=== PATIENT | female | born 1980 | race Caucasian/White ===

== ENCOUNTER → 2019-03-10 | Outpatient (CLI) | payer MEDICAID ==
--- NOTE | 2019-03-10 11:39 | REPMRS ---
Patient History The patient states she had a clinical breast exam in 2018. Family history of endometrial cancer at age 36 in mother, breast cancer at age 38 in maternal aunt, liver cancer in maternal grandmother. Digital Mammo Diagnostic Bilateral: March 10, 2019 - Exam #: [id number] Bilateral CC and MLO view(s) were taken. Technologist: Genie Arreola, Technologist No prior studies available for comparison. FINDINGS: The breast tissue is almost entirely fat. There is no evidence of dominant mass, architectural distortion, or grouped microcalcification typical of malignancy. 3-D tomosynthesis shows no additional findings. Assessment: BI-RADS/ACR category 1 mammogram. Negative Mammogram. Recommendation Routine screening mammogram of both breasts in 1 year (for women over age 40). This patient's Lifetime Breast Cancer RIsk is estimated at 14.2 %. This mammogram was interpreted with the aid of an FDA-approved computer-aided dectection system. Electronically Signed By: Rafael Mata MD 03/10/19 [id number]
== END ==
LOC: M RAD 10:49
DX: N60.19 Diffuse cystic mastopathy of unspecified breast (principal); Z80.3 Family history of malignant neoplasm of breast; Z80.49 Family history of malignant neoplasm of other genital organs
CPT/HCPCS: 77066; G0279

== ENCOUNTER 2020-07-11 05:28 | Emergency (ER) | payer MEDICAID, OTHER ==
[~2020-07-11] VITALS: Ht 170.2 cm; Wt 122.7 kg
--- OUTSIDE RECORDS SUMMARY | 2020-07-11 05:33 | CCD | Continuity of Care Document ---
Author Author Radha DAMON Organization Unknown Address [address] [place] [address] [place] [address] Phone [phone] Care Team Providers Care Director Of Retail Operations Name Role Phone PCP Out Of Area AUTM Unavailable [place] [employer] [facility] [phone] Problems Description No Information Available Social History Type Date Description Comments Sex Unknown ETOH Use Rarely consumes alcohol Tobacco Use Start: Unknown Patient has never smoked Smoking Status Reviewed: 06/01/20 Patient has never smoked Allergies, Adverse Reactions, Alerts Active Allergies Reaction Severity Comments Date Sulfa 05/01/2020 Keflex 05/01/2020 Ibuprofen 05/01/2020 Medications Active Medications SIG Qnty Indications Ordering Provide r Date Ondansetron 4mg Tablets Dispers 1 tab under tongue three times a day as needed 15tabs R11.2 Tyrel Fontenot JR., M.D. 06/01/2020 Zoloft 100mg Tablets 1 by mouth every day Unknown Levothyroxine Sodium 150mcg Capsules Unknown Shira Allergy 60mg Tablets 1 tab by mouth twice a day as needed for allergy symptoms Unknown Immunizations Description No Information Available Vital Signs Date Vital Result Comment 06/01/2020 9:20am BP Systolic 124 mmHg BP Diastolic 86 mmHg Heart Rate 72 /min Respiratory Rate 14 /min O2 % BldC Oximetry 97 % Body Temperature 96.9 F Weight 274.00 lb Height 67 inches 5'7" BMI (Body Mass Index) 42.9 kg/m2 Pain Level 5 05/01/2020 3:58pm BP Systolic 125 mmHg BP Diastolic 71 mmHg Heart Rate 75 /min Respiratory Rate 16 /min O2 % BldC Oximetry 97 % Body Temperature 98.1 F Weight 268.00 lb Height 67 inches 5'7" BMI (Body Mass Index) 42.0 kg/m2 Pain Level 1 Results Description No Information Available Procedures Description No Information Available Medical Devices Description No Information Available Encounters Type Date Location Provider Dx Diagnosis Office Visit 06/01/2020 8:40a Main Office LISSA Justice R11.2 Nausea with vomiting, unspecified Z20.828 Contact w and exposure to ot h viral communicable diseases Office Visit 05/01/2020 4:05p Main Office Miryam Smith NP J00 Acute nasopharyngitis [common cold] Z20.828 Contact w and exposure to ot h viral communicable diseases Assessments Date Code Description Provider 06/01/2020 R11.2 Nausea with vomiting, unspecifie d LISSA Justice 06/01/2020 Z20.828 Contact with and (thapa spected) exposure to other viral communicable diseases LISSA Justice 05/01/2020 J00 Acute nasopharyngitis [common co ld] Miryam Smith NP 05/01/2020 Z20.828 Contact with and (thapa spected) exposure to other viral communicable diseases Miryam Smith NP Plan of Treatment 06/01/2020 - LISSA Justice* R11.2 Nausea with vomiting, unspecified* New Medication:* Ondansetron 4 mg - 1 tab under tongue three times a day as needed * Z20.828 Contact with and (suspected) exposure to other viral communicable diseases* Comments:* POC rapid COVID neg today Functional Status Description No Information Available Mental Status Description No Information Available Referrals Description No Information Available
--- OUTSIDE RECORDS SUMMARY | 2020-07-11 05:34 | CCD | Continuity of Care Document ---
Author Author Radha DAMON Organization Unknown Address [address] [place] [address] [place] [address] Phone [phone] Care Team Providers Care Remote Pilot Operator Name Role Phone PCP Out Of Area AUT[facility] Unavailable [place] [employer] [facility] [phone] Problems Description No Information Available Social History [...]
--- OUTSIDE RECORDS SUMMARY | 2020-07-11 05:34 | CCD | Continuity of Care Document ---
Author Author Radha PALOMINO LATHE SETUP OPERATOR Organization Unknown Address [address] [place] [address] [place] [address] Phone [phone] Care Team Providers Care Conservation Science Officer Name Role Phone PCP Out Of Area [facility] Unavailable [place] [employer] [facility] [phone] Problems Description No Information Available Social History Type Date Description Comments Sex Unknown ETOH Use Rarely consumes alcohol Tobacco Use Start: Unknown Patient has never smoked Smoking Status Reviewed: 05/01/20 Patient has never smoked Allergies, Adverse Reactions, Alerts Active Allergies Reaction Severity Comments Date Sulfa 05/01/2020 Keflex 05/01/2020 Ibuprofen 05/01/2020 Medications Active Medications SIG Qnty Indications Ordering Provide r Date Zoloft 100mg Tablets 1 by mouth every day Unknown Levothyroxine Sodium 150mcg Capsules Unknown Shira Allergy 60mg Tablets 1 tab by mouth twice a day as needed for allergy symptoms Unknown Immunizations Description No Information Available Vital Signs Date Vital Result Comment 05/01/2020 3:58pm BP Systolic 125 mmHg BP Diastolic 71 mmHg Heart Rate 75 /min Respiratory Rate 16 /min O2 % BldC Oximetry 97 % Body Temperature 98.1 F Weight 268.00 lb Height 67 inches 5'7" BMI (Body Mass Index) 42.0 kg/m2 Pain Level 1 Results Description No Information Available Procedures Description No Information Available Medical Devices Description No Information Available Encounters Description No Information Available Assessments Description No Information Available Plan of Treatment No Information Available Functional Status Description No Information Available Mental Status Description No Information Available Referrals Description No Information Available
--- OUTSIDE RECORDS SUMMARY | 2020-07-11 05:34 | CCD ---
Author Author [facility] Organization [facility] Address Unknown Phone Unavailable Care Team Providers Care Wood Caulker Name Role Phone NON, PHYSICIAN STAFF Unavailable Unavailable Brigida Vallejogan PA PA Unavailable [phone] Brigida Vallejo Danni PA PA Unavailable [phone] Brigida Vallejogan PA PA Unavailable [phone] Brigida Vallejogan PA PA Unavailable [phone] Efren FERNÁNDEZ MD Unavailable Unavailable Efren FERNÁNDEZ MD Unavailable Unavailable Efren FERNÁNDEZ MD Unavailable Unavailable Miryam Smith NP Unavailable Unavailable Miryam Smith NP Unavailable Unavailable Smith, Miryam JAVA WEB ARCHITECT Unavailable Unavailable Smith, Miryam JAVA WEB ARCHITECT Unavailable Unavailable Smith, Miryam JAVA WEB ARCHITECT Unavailable Unavailable Smith, Miryam JAVA WEB ARCHITECT Unavailable Unavailable Smith, Miryam JAVA WEB ARCHITECT Unavailable Unavailable Smith, Miryam JAVA WEB ARCHITECT Unavailable Unavailable Smith, Miryam JAVA WEB ARCHITECT Unavailable Unavailable Smith, Miryam JAVA WEB ARCHITECT Unavailable Unavailable Smith, Miryam JAVA WEB ARCHITECT Unavailable Unavailable Loredo, Ashley Beverley PA Unavailable Unavailable Loredo, Ashley Beverley PA Unavailable Unavailable Loredo, Ashley Beverley PA Unavailable Unavailable L[place]o, Ashley Beverley PA Unavailable Unavailable [place]o, Ashley Beverley PA Unavailable Unavailable L[place]o, Ashley Beverley PA Unavailable Unavailable [place], Ashley Beverley PA Unavailable Unavailable L[place]o, Ashley Beverley PA Unavailable Unavailable [place], Ashley Beverley PA Unavailable Unavailable [place], Ashley Beverley PA Unavailable Unavailable VENERUS, Dayday FREY MD Unavailable Unavailable VENERUS, Dayday FREY MD Unavailable Unavailable VENERUS, Dayday FREY MD Unavailable Unavailable VENERUS, Dayday FREY MD Unavailable Unavailable VENERUS, Dayday FREY MD Unavailable Unavailable VENERUS, Dayday FREY MD Unavailable Unavailable VENERUS, Dayday FREY MD Unavailable Unavailable VENERUS, Dayday FREY MD Unavailable Unavailable VENERUS, Dayday FREY MD Unavailable Unavailable Brigida Vallejo Unavailable Unavailable Re-disclosure Warning The records that you are about to access may contain information from federally-assisted alcohol or drug abuse programs. If such information is present, then the following federally mandated warning applies: This information has been disclosed to you from records protected by federal confidentiality rules (42 CFR part 2). The federal rules prohibit you from making any further disclosure of this information unless further disclosure is expressly permitted by the written consent of the person to whom it pertains or as otherwise permitted by 42 CFR part 2. A general authorization for the release of medical or other information is NOT sufficient for this purpose. The Federal rules restrict any use of the information to criminally investigate or prosecute any alcohol or drug abuse patient.The records that you are about to access may contain highly sensitive health information, the redisclosure of which is protected by Article 27-F of the [place] State Public Health law. If you continue you may have access to information: Regarding HIV / AIDS; Provided by facilities licensed or operated by the [facility] Office of Mental Health; or Provided by the [facility] Office for People With Developmental Disabilities. If such information is present, then the following [facility] mandated warning applies: This information has been disclosed to you from confidential records which are protected by state law. State law prohibits you from making any further disclosure of this information without the specific written consent of the person to whom it pertains, or as otherwise permitted by law. Any unauthorized further disclosure in violation of state law may result in a fine or retirement sentence or both. A general authorization for the release of medical or other information is NOT sufficient authorization for further disc losure. Allergies and Adverse Reactions Type Description Substance Reaction Status Data Source(s ) Drug allergy Keflex Cephalexin anaphylaxis Active [facility] ([facility]) Sulfa drugs Sulfa drugs Sulfa drugs anaphylaxis Active [facility]) Seasonal Seasonal Seasonal Unknown Active [facility]) Hydrocodone-Acetaminophen Hydrocodone-Acetaminophen Acetamin ophen 21.7 MG/ML / Hydrocodone Bitartrate 0.5 MG/ML Oral Solution hives Active eCW1 ([facility]) Family History Family Member Name Family Member Gender Family Member Status Date o f Status Description Data Source(s) Unknown Male Problem MEDENT ([facility]) () Encounters Encounter Providers Location Date Indications Data Source(s ) Outpatient Attender: Beverley zendejas 06/01/2020 07:40:00 AM EST [facility] ([facility] Outpatient Attender: Miryam manzano 05/01/2020 03:05:00 PM EST [facility] ([facility]) Unknown 1 [facility] [id number] [place] [address] 03/20/2020 12:00:00 AM EDT eCW1 ([facility]) Unknown 1 [facility] [id number] [place] [address] 02/13/2020 12:00:00 AM EDT eCW1 ([facility]) Outpatient 1 [facility] [id number] [place] [address] 02/12/2020 12:00:00 AM EDT eCW1 ([facility]) Unknown 1 [facility] [id number] [place] [address] 02/06/2020 12:00:00 AM EDT eCW1 ([facility]) Unknown 1 [facility] [id number] [place] [address] 11/06/2019 12:00:00 AM EDT eCW1 ([facility]) Outpatient Attender: Danni Nichols kevin: Danni Christiansener: Danni ALCARAZ CPSCAORT-LABPNP 2019 01:13:00 PM EDT COVID 19 EMPL OYEE SCREENING [facility] COVID 19 EMPLOYEE SCREENING Outpatient Attender: CHRISTIAN FERNÁNDEZ MD CPSCAORT-LABPD 10/24/2019 10 :51:00 AM EDT DRUG SCREENING [facility] DRUG SCREENING Outpatient 1 [facility] [id number] [place] [address] 10/24/2019 12:00:00 AM EDT eCW1 ([facility]) Outpatient 1 [facility] [id number] [place] [address] 08/08/2019 12:00:00 AM EDT eCW1 ([facility]) Outpatient 1 [facility] [id number] [place] [address] 08/07/2019 12:00:00 AM EDT eCW1 ([facility]) Outpatient 1 [facility] [id number] [place] [address] 08/07/2019 12:00:00 AM EDT eCW1 ([facility]) Emergency Attender: SHANTE SOTNER MDConsultant: STAFF NON 08/03/2019 04:37:00 PM EDT - 08/03/2019 05:39:00 PM EDT [facility] Patient discharged. Outpatient 1 [facility] [id number] [place] [address] 08/01/2019 12:00:00 AM EDT eCW1 ([facility]) Outpatient 1 [facility] [id number] [place] [address] 06/08/2019 12:00:00 AM EST eCW1 ([facility]) Outpatient 1 [facility] [id number] [place] [address] 05/29/2019 12:00:00 AM EST eCW1 ([facility]) Outpatient 1 [facility] [id number] [place] [address] 05/29/2019 12:00:00 AM EST eCW1 ([facility]) Outpatient 1 [facility] [id number] [place] [address] 05/26/2019 12:00:00 AM EST eCW1 ([facility]) Immunizations Vaccine Date Status Description Data Source(s) New in 2011. IIV4 05/26/2019 10:05:00 AM EST completed eCW1 ([facility]) New in 2011. IIV4 05/26/2019 10:05:00 AM EST completed eCW1 ([facility]) New in 2011. IIV4 05/26/2019 10:05:00 AM EST completed eCW1 ([facility]) New in 2011. IIV4 05/26/2019 10:05:00 AM EST completed eCW1 ([facility]) New in 2011. IIV4 05/26/2019 10:05:00 AM EST completed eCW1 ([facility]) New in 2011. IIV4 05/26/2019 10:05:00 AM EST completed eCW1 ([facility]) Medications Medication Brand Name Start Date Product Form Dose Route Admi nistrative Instructions Pharmacy Instructions Status Indications Reaction Description Data Source(s) Ondansetron 4 MG Disintegrating Oral Tablet Ondansetron 06/01/2020 12:00:00 AM EST active MEDENT ([facility], [facility]) Trazodone Hydrochloride 50 MG Oral Tablet Trazodone HC l 50 MG Trazodone HCl 50 MG 05/26/2019 12:00:00 AM EST 1.0 {tablet_at_bedtime_as_needed} active Trazodone HCl 50 MG eCW1 ([facility]) Trazodone Hydrochloride 50 MG Oral Tablet Trazodone HC l 50 MG Trazodone HCl 50 MG 05/26/2019 12:00:00 AM EST 1.0 {tablet_at_bedtime_as_needed} active Trazodone HCl 50 MG eCW1 ([facility]) Trazodone Hydrochloride 50 MG Oral Tablet Trazodone HC l 50 MG Trazodone HCl 50 MG 05/26/2019 12:00:00 AM EST active 1 tablet at bedtime as needed eCW1 ([facility]) Trazodone Hydrochloride 50 MG Oral Tablet Trazodone HC l 50 MG Trazodone HCl 50 MG 05/26/2019 12:00:00 AM EST active 1 tablet at bedtime as needed eCW1 ([facility]) Trazodone Hydrochloride 50 MG Oral Tablet Trazodone HC l 50 MG Trazodone HCl 50 MG 05/26/2019 12:00:00 AM EST 1.0 {tablet_at_bedtime_as_needed} active Trazodone HCl 50 MG eCW1 ([facility]) Trazodone Hydrochloride 50 MG Oral Tablet Trazodone HC l 50 MG Trazodone HCl 50 MG 05/26/2019 12:00:00 AM EST active 1 tablet at bedtime as needed eCW1 ([facility]) Trazodone Hydrochloride 50 MG Oral Tablet Trazodone HC l 50 MG Trazodone HCl 50 MG 05/26/2019 12:00:00 AM EST 1.0 {tablet_at_bedtime_as_needed} active Trazodone HCl 50 MG eCW1 ([facility]) Trazodone Hydrochloride 50 MG Oral Tablet Trazodone HC l 50 MG Trazodone HCl 50 MG 05/26/2019 12:00:00 AM EST active 1 tablet at bedtime as needed eCW1 ([facility]) Trazodone Hydrochloride 50 MG Oral Tablet Trazodone HC l 50 MG Trazodone HCl 50 MG 05/26/2019 12:00:00 AM EST 1.0 {tablet_at_bedtime_as_needed} active Trazodone HCl 50 MG eCW1 ([facility]) Insurance Providers Payer name Policy type / Coverage type Policy ID Covered republican ID Covered republican's relationship to carrion Policy [place] Plan Information EMEDNY [id number] SP [id number] SELF PAY S [facility]-O/P [id number] 18 [id number] [facility]/P [id number] 18 [id number] MEDICAID [id number] SP [id number] ANSI-Commercial [id number] ANSI-Commercial [id number] MEDICAID M [id number] Self [id number] WILMER I [id number] Self [id number] ANSI-Commercial [id number] WILMER [id number] Self [id number] [employer] [id number] Self VYE [id number] SELF PAY (1) UNAVAILABLE UNAVA ILABLE [employer] (155) UNAVAILABLE UNAVAILABLE [employer] [id number] Self [id number] BCBS Ppo Medigap Part B [id number] Self [id number] BCBS Ppo Medigap Part B [id number] Self [id number] BCBS Ppo Health Maintenance Organization (HMO) [id number] Self [id number] [employer] [id number] Self [id number] BCBS Ppo Medigap Part B [id number] Self [id number] BCBS Ppo Health Maintenance Organization (HMO) [id number] Self [id number] [employer] [id number] Self [id number] BCBS Ppo Health Maintenance Organization (HMO) [id number] Self [id number] [employer] [id number] Self [id number] BCBS Ppo Health Maintenance Organization (HMO) [id number] Self [id number] [employer] [id number] Self [id number] BCBS Ppo Health Maintenance Organization (HMO) [id number] Self [id number] MVP [id number] 18 [id number] BCBS Ppo Health Maintenance Organization (HMO) Se lf [employer] Self MVP SELECT [id number] SP [id number] SELF PAY UNAVAILABLE SP UNAVAILA BLE MVP DO Not Use Health Maintenance Organization (HMO) Self [place] [employer] F [id number] SELF 7 [id number] WILMER [id number] SP [id number] [employer] Health Ins- Ppo/Epo Health Maintenance Organization (HMO) Self MVP [id number] 18 [id number] MEDICAID [facility] [id number] SP AY [id number] WILMER I [id number] Self [id number] MEDICAID W [id number] S [id number] MEDICAID W [id number] S [id number] PCP [place] CARE O [id number] S [id number] SELFPAY 5 UNAVAILABLE 1 UNAVAILA BLE MEDICAID 3 [id number] 1 [id number] WILMER 7 [id number] 1 [id number] WILMER MEDICAID 2 [id number] 1 [id number] SELF PAY 2 UNAVAILABLE 1 UNAVAILA BLE BC EXC PLANS 1 [id number] 1 [id number] WILMER 7 [id number] 1 [id number] Self [id number] Problems, Conditions, and Diagnoses Code Display Name Description Problem Type Effective Dates Data Source(s) J01.11 25169465 Acute recurrent frontal sinusitis Problem 05/26/2019 12:00:00 AM EST eCW1 ([facility]) Z23 172756739 Immunization due Problem 05/26/2019 12:00:00 AM EST eCW1 ([facility]) N64.4 [id number] Breast pain, right Problem 05/26/2019 12:00:00 AM EST eCW1 ([facility]) J01.11 80386223 Acute recurrent frontal sinusitis Problem 05/26/2019 12:00:00 AM EST eCW1 ([facility]) Z23 360276822 Immunization due Problem 05/26/2019 12:00:00 AM EST eCW1 ([facility]) N64.4 [id number] Breast pain, right Problem 05/26/2019 12:00:00 AM EST eCW1 ([facility]) J209 Acute bronchitis, unspecified Acute bronchitis, unspec ified Diagnosis 08/03/2019 04:37:00 PM EDT [facility] R05 Cough Cough Diagnosis 08/03/2019 04:37:00 PM ED T [facility] Surgeries/Procedures Procedure Description Date Indications Data Source(s) Influenza Fluzone (6-35mo) 05/26/2019 12:00:00 AM EST eCW1 ([facility]) IMMUNIZATION ADMIN 05/26/2019 12:00:00 AM EST eCW1 ([facility]) Bmi is documented above normal parameters and a follow-up pl an is documented 05/26/2019 12:00:00 AM EST eCW1 ([facility]) TOBACCO NON-USER 05/26/2019 12:00:00 AM EST eCW1 ([facility]) Screening for clinical depression is doc umented as negative, a follow-up plan is not required 05/26/2019 12:00:00 AM EST eCW1 ([facility]) Results ID Date Data Source [id number] 06/01/2020 12:00:00 AM EST [facility] Name Value Range Interpretation Code Description Data Caridad rce(s) Supporting Document(s) SARS coronavirus 2 Ag Negative [facility] This lab was ordered by [facility] and reported by [facility]. ID Date Data Source TSH+Free T4 02/13/2020 12:49:35 PM EDT eCW1 ([facility]) Name Value Range Interpretation Code Description Data Caridad rce(s) Supporting Document(s) Thyroxine (T4) free [Mass/volume] in Serum or Plasma 0.88 T4,Free(Direct) eCW1 ([facility]) Thyrotropin [Units/volume] in Serum or Plasma by Detec tion limit <= 0.005 mIU/L 12.400 TSH eCW1 ([facility]) ID Date Data Source [id number] 02/13/2020 08:35:00 AM EDT [facility] Name Value Range Interpretation Code Description Data Caridad rce(s) Supporting Document(s) TSH 12.400 uIU/mL 0.450-4.500 Above high normal [facility] T4,Free(Direct) 0.88 ng/dL 0.82-1.77 [facility] ID Date Data Source [id number] 11/04/2019 12:16:00 AM EDT [facility] Name Value Range Interpretation Code Description Data Caridad rce(s) Supporting Document(s) Respiratory specimen severe acute respir atory syndrome coronavirus 2 (SARS-CoV-2) RNA [facility] This lab was ordered by [facility] Juan johnson and reported by [facility]. ID Date Data Source [id number] 11/04/2019 12:09:00 AM EDT [facility] COVID-19 Specimen Source NASOPHARYNGEAL Is Patient admitted or to be admitted? N Name Value Range Interpretation Code Description Data Caridad rce(s) Supporting Document(s) SARS-CoV-2 RNA Negative Normal (applies to non-numeric r esults) [facility] 2019-novel Coronavirus (2019-nCoV) not d etected by the qRT-PCR assay. Consider testing for other respiratory viruses or re-collecting for 2019-nCoV testing. Note: Optimum timing for peak viral levels during infections caused by 2019- nCoV have not been determined. Collection of multiple specimens from the same patient may be necessary to detect the virus. Limitations Positive results are indicative of active infection with SARS-CoV-2 but do not rule out bacterial infection or co-infection with other viruses. The agent detected may not be the definite cause of disease. In addition, detection of viral RNA may not indicate the presence of infectious virus or that SARS-CoV-2 is the causative agent for clinical symptoms. Negative results do not preclude SARS-CoV-2 infection and should not be used as the sole basis for patient management decisions. Negative results must be combined with clinical observations, patient history, and epidemiological information. False negative results may also occur if amplification inhibitors are present in the specimen or if inadequate numbers of organisms are present in the specimen. Optimum specimen types and timing for peak viral levels during infections caused by SARS-CoV-2 have not been fully determined. Collection of multiple specimens (types and time points) from the same patient may be necessary to detect the virus. The test was validated for use with upper respiratory specimens obtained via nasopharyngeal or oropharyngeal swabs in VTM, UTM, M4, M5, M6, saline, and MTM media. The performance of this test has not been established for other specimens. Specimens collected using other FDA recommended Specimen Collection Materials listed in the FDA COVID-19 [employer] communication (August 17, 2019) are processed with the caveat that they were not all validated for use with this test and the result must be interpreted in this context. Furthermore, a false negative results may occur if a specimen is improperly collected, transported or handled. If the virus mutates in the RT- PCR target region, SARS-CoV-2 may not be detected or may be detected less predictably. Inhibitors or other types of interference may produce a false negative result. An interference study evaluating the effect of common cold medications was not performed. This test is not FDA-cleared but its performance characteristics were established by our CLIA-certified, CAP-accredited, high complexity laboratory in accordance with CLIA regulations, [employer] (CAP) guidelines (Aug 10, 2019), and FDA guidance (Jul 22, 2019). This test is only for use under the Food and Drug Administration's Emergency Use Authorization. THIS IS A STATE REPORTABLE COMMUNICABLE DISEASE. Performing Lab Normal (applies to non-numeric r esults) [facility] Is Patient Admitted or Awaiting Admissio n?:N COVID-19 Specimen Source: JAVA WEB ARCHITECT Test performed or referred by The [address] [address] ID Date Data Source [id number] 08/04/2019 04:59:00 [place] [address] PHONE: [phone] FAX: [phone] Name .................. : ORA Martinez Acct Number.................. : [id number] ROOM. ................. : TR-1A MR Number ................... : [id number] Stay type ............. : E/R Discharge Date......... ... : 08/03/19 Admit Date ......... : 08/03/19 Admit Phys .................... : HERBIE NUNEZ Date of ....... : 1980 Family Phys ................... : NON STAFF Phone .................. : [phone] Age ................................ : 38 Film# .................. .:[id number] Sex ................................. : F Unsigned transcriptions are preliminary reports and do not represent a medical or legal document CHEST 2 VIEWS 79804 COMPLETE:08/03/19 17:45 [facility] [id number] Reason(s): h/o CF. currently c/o chest congestion/cough CHEST X-RAY: PA AND LATERAL VIEWS HISTORY: Congestion, cough. FINDINGS: The cardiac and mediastinal silhouettes appear normal and the lungs are clear. The bones and soft tissues are normal. The upper abdomen is unremarkable. IMPRESSION: No acute disease identifiable. Electronically Reviewed and Signed By Capo Lemus MD , 08/04/19 16:59, GRAYSON Transcribe Initials: MARTY , Transcribe Date: 08/03/19 18:43, Dictation Date: Copy for: [facility] via fax Copy for: EMERGENCY DEPT via modem Copy for: 710 MED REC DISCHARGED Page 1 of 1 Name Value Range Interpretation Code Description Data Caridad rce(s) Supporting Document(s) ID Date Data Source [id number] 08/03/2019 04:37:00 PM EDT [facility] 1 OrderSheet [facility] Emergency Department [address] [place] [address] Phone #: ext- [phone] 08/03/2019 16:28 Patient: MILLIE PAYAN Sex: F : 1980 Age: 38yWEIGHT:131.5 kg (M) HEIGHT:66 inches (S) BMI:46.8ALLERGIES: Ibuprofen, Keflex, Sulfa AntibioticsCHIEF COMPLAINT: coughDIAGNOSIS: BronchitisLAB ORDERSOrder Description Priority Entered Acknowledged InitialedDIAGNOSTIC STUDY ORDERSOrder Description Priority Entered Acknowledged InitialedChest 2 View STAT 16:51 08/03/2019 16:59 Shaun(Oxygen?(No)) Melia Ladd RN PA; Reason for Study: h/o CF. currently c/o chest congestion/coughMEDICATION/IV/DRIP/FLUID ORDERSOrder Description Priority Entered Acknowledged InitialedGENERAL ORDERSOrder Description Priority Entered Acknowledged Initialed[Electronically signed by Shaun Ladd RN (19:12 08/03/2019)][Electronically signed by Melia Gillette (20:39 08/03/2019)][Electronically locked by Shaun Ladd RN (19:12 08/03/2019)] Name Value Range Interpretation Code Description Data Caridad rce(s) Supporting Document(s) ID Date Data Source [id number] 08/03/2019 04:37:00 PM EDT [facility] 1 Medication Reconciliation Report [facility] Emergency Department [address] [place] [address] Phone #: ext- [phone] 08/03/2019 16:28 Patient: MILLIE PAYAN Sex: F : 1980 Age: 38yWeight: 131.5 kgHeight/Length: 66 in.BMI: 46.8ALLERGIES: Ibuprofen, Keflex, Sulfa AntibioticsThe patient's Home Medications are listed below:CONTINUE TAKING THE FOLLOWING MEDICATIONS: Shira-D Allergy Congestion Oral busPIRone HCl Oral DuoNeb Levothyroxine Sodium Oral Mucinex Oral traZODone HCl Oral Zoloft OralThe source(s) of the original Home Medication information:Not obtained.The following Medications were given to the patient in the Emergency Department:None.The following Medications were prescribed to the patient:clindamycin HCl 300 mg capsule Take 1 capsule every eight hours -- Dispense 30 capsule. Refills: 0.Substitution permitted.Pharmacy - [facility] [address] [id number] [facility] [address] ; [place] [address]. . -- LISSA Balderas Name Value Range Interpretation Code Description Data Caridad rce(s) Supporting Document(s) ID Date Data Source [id number] 08/03/2019 04:37:00 PM EDT [place] [address] Medication Administration Record [facility] Emergency Department [address] [place] [address] Phone #: ext- [phone] 08/03/2019 16:28 Patient: MILLIE PAYAN Sex: F : 1980 Age: 38yWeight: 131.5 kgHeight/Length: 66 inBMI: 46.8ALLERGIES: Ibuprofen, Keflex, Sulfa AntibioticsDate/Time Medication Administered Medication Ordered Name Value Range Interpretation Code Description Data Caridad rce(s) Supporting Document(s) ID Date Data Source [id number] 08/03/2019 04:37:00 PM EDT [facility] 1 General Instructions [facility] Emergency Department [address] [place] [address] Phone #: ext- [phone] 08/03/2019 16:28 Patient: MILLIE PAYAN Sex: F : 1980 Age: 38yAcute bronchitis.INSTRUCTIONSDrink plenty of fluids.(OTC cold medications as needed for symptoms. Take the antibiotics as directed. return to the ER forworsening or concerning symptoms).Warnings: GENERAL WARNINGS: Return or contact your physician immediately if your conditionworsens or changes unexpectedly, if not improving as expected, or if other problems arise. Specificallyreturn if problem worsens or fails to resolve.Your Current Medications: Your current home medications have been reviewed.CONTINUE TAKING THE FOLLOWING MEDICATIONS:Shira-D Allergy Congestion Oral.busPIRone HCl Oral.DuoNeb*.Levothyroxine Sodium Oral.Mucinex Oral.traZODone HCl Oral.Zoloft Oral.Prescription Medications:clindamycin HCl 300 mg capsule Take 1 capsule every eight hours -- Dispense 30 capsule. Refills: 0.Substitution permitted.Pharmacy - [facility] [phone] [facility] [address] ; [place], [place] [address]. .Follow-up:Follow up with your healthcare provider in about three days. Call for an appointment. Reason for referral:evaluation and treatment. Summary of care provided to patient via paper.Understanding of the discharge instructions verbalized by patient. ADDITIONAL INFORMATIONBronchitis, Antibiotic Treatment (Adult) 2 General Instructions [facility] Emergency Department [address] [place] [address] Phone #: ext- [phone] 08/03/2019 16:28 Patient: MILLIE PAYAN Sex: F : 1980 Age: 38yBronchitis is an infection of the air passages (bronchial tubes) in your lungs. It often occurs when youhave a cold. This illness is contagious during the first few days and is spread through the air bycoughing and sneezing, or by direct contact (touching the sick person and then touching your owneyes, nose, or mouth).Symptoms of bronchitis include cough with mucus (phlegm) and low-grade fever. Bronchitis usuallylasts 7 to 14 days. Mild cases can be treated with simple home remedies. More severe infection istreated with an antibiotic.Home careFollow these guidelines when caring for yourself at home: If your symptoms are severe, rest at home for the first 2 to 3 days. When you go back to your usual activities, don't let yourself get too tired. Don't smoke. Also stay away from secondhand smoke. 3 General Instructions [facility] Emergency Department [address] [place] [address] Phone #: ext- [phone] 08/03/2019 16:28 Patient: MILLIE PAYAN Sex: F : 1980 Age: 38y You may use llgp-hdz-dashipa medicines to control fever or pain, unless another medicine was prescribed. If you have chronic liver or kidney disease or have ever had a stomach ulcer or gastrointestinal bleeding, talk with your healthcare provider before using these medicines. Also talk to your provider if you are taking medicine to prevent blood clots. Aspirin should never be given to anyone younger than 18 who is ill with a viral infection or fever. It may cause severe liver or brain damage. Your appetite may be low, so a light diet is fine. Stay well hydrated by drinking 6 to 8 glasses of fluids per day. This includes water, soft drinks, sports drinks, juices, tea, or soup. Extra fluids will help loosen mucus in your nose and lungs. Ewhr-bpo-uzqhnab cough, cold, and sore-throat medicines will not shorten the length of the illness, but they may be helpful to reduce your symptoms. Don't use decongestants if you have high blood pressure. Finish all antibiotic medicine. Do this even if you are feeling better after only a few days.Follow-up careFollow up with your healthcare provider, or as advised. If you had an X-ray or ECG(electr ocardiogram), a specialist will review it. You will be told of any new test results that may affectyour care.If you are age 65 or older, if you smoke, or if you have a chronic lung disease or condition that affectsyour immune system, ask your healthcare provider about getting a pneumococcal vaccine and ayearly flu shot (influenza vaccine).When to seek medical adviceCall your healthcare provider right away if any of these occur: Fever of 100.4F (38C) or higher, or as directed by your healthcare provider Coughing up more sputum Weakness, drowsiness, headache, facial pain, ear pain, or a stiff neckCall 911Call 911 if any of these occur. Coughing up blood Weakness, drowsiness, headache, or stiff neck that get worse Trouble breathing, wheezing, or pain with breathing 4 General Instructions [facility] Emergency Department [address] [place] [address] Phone #: ext- [phone] 08/03/2019 16:28 Patient: MILLIE PAYAN Sex: F : 1980 Age: 38y [id number] [employer]. [address] [place] [address]. All rights reserved. This information is not intended as asubstitute for professional [facility] care. Always follow your healthcare professional's instructions. You have been given the following additional information: Bronchitis, Antibiotic Treatment (Adult)(Electronically signed by LISSA Balderas 08/03/2019 20:39) Name Value Range Interpretation Code Description Data Caridad rce(s) Supporting Document(s) ID Date Data Source [id number] 08/03/2019 04:37:00 PM EDT [facility] 1 Clinical Report - Nurses [facility] Emergency Department [address] [place] [address] Phone #: [phone] [phone] 08/03/2019 16:28 Patient: MILLIE PAYAN [facility]#: [id number] Sex: F : 1980 Age: 38yTRIAGEHistorian: patient.Triage time: 16:30 08/03/2019. Acuity: LEVEL 4.Chief Complaint: COUGH.Alert. No acute distress.( pt c/o cough and congestion since yesterday.).SEPSIS SCREEN: NEGATIVE. Negative (no infection suspected/documented). --16:35 08/03/19, R.N.16:30 08/03/19. BP: 133/82. MAP: 99. HR: 79. RR: 18. O2 saturation: 96%. Temp: 98.5 F. Pain level now:0/10. --16:35 08/03/19August, R.N.Weight: 131.5 kg measured. Height/Length: 66 inches Per Patient. BMI: 46.8. --16:30 08/03/19August,R.N.MedicationsDuoNeb. --16:31 08/03/19August, R.N. Levothyroxine Sodium Oral. --16:31 08/03/19August, R.N. Zoloft Oral. --16:31 08/03/19August, R.N. busPIRone HCl Oral. --16:31 08/03/19August, R.N. traZODone HCl Oral. --16:31 08/03/19August, R.N. Shira-D Allergy Congestion Oral. --16:31 08/03/19August, R.N. Mucinex Oral. --16:31 08/03/19August, R.N.AllergiesSulfa Antibiotics. --16:31 08/03/19August, R.N.Keflex. --16:31 08/03/19August, R.N.Ibuprofen. --16:31 08/03/19 Kassie Pretty R.N.PROBLEMS:Anxiety.Ptsd.Cystic fibrosis. --16:32 08/03/19 Kassie Pretty R.N.ADDITIONAL SURGERIES:Acl repair..Medial meniscus removal. 2 Clinical Report - Nurses [facility] Emergency Department [address] [place] [address] Phone #: ext- [phone] 08/03/2019 16:28 Patient: MILLIE PAYAN Sex: F : 1980 Age: 38y Tonsillectomy Adenoidectomy. Tympanostomy Tubes. --16:32 08/03/19 Kassie Pretty R.N. History PAST MEDICAL HX: Last normal menstrual period- has IUD. SOCIAL HX: Never smoker. No alcohol use or drug use. She was offered HIV testing but declined. She has not traveled outside the [place] Infectious disease exposure: No infectious disease exposure. Patient is not a known carrier of tuberculosis, hepatitis, HIV, MRSA or VRE. Patient is not a known carrier of CRE. SELF HARM ASSESSMENT: Self harm assessment was performed. The patient answered "no" to the question(s) "Have you recently felt down, depressed, or hopeless?", "Do you have thoughts of harming or killing yourself?", "Do you have a plan for harming or killing yourself?", "Have you recently had thoughts about harming or killing others?", "Do you have any dangerous items in your possession?", "Have you noticed less interest or pleasure in doing things?", "Are you here because you tried to hurt yourself?" and "Have you ever tried to hurt yourself before today?". ABUSE ASSESSMENT: Abuse assessment. yes. The patient had positive responses to the question(s) "Do you feel safe in your home?". No report of abuse. NUTRITIONAL RISK ASSESSMENT: The nutritional risk assessment revealed no deficiencies. FUNCTIONAL ASSESSMENT: Functional assessment: no impairments noted. LEARNING NEEDS ASSESSMENT: The learning needs assessment revealed no barriers. FALL RISK ASSESSMENT: Fall risk assessment completed. No risk factors identified. SKIN INTEGRITY ASSESSMENT: Skin integrity risk assessment completed. No skin integrity risk identified. --16:35 08/03/19 Maria De Jesus, August, R.N. Interventions To treatment room. --16:35 08/03/19 [facility].PHYSICAL HXRGEFJWGO34:45 08/03/19. Ambulatory to room.GENERAL / NEURO / PSYCH: Alert. Oriented X 4.HEENT: Runny nose- thin, clear discharge. Pharynx within normal limits. Voice within normal limits.RESPIRATORY: Respirations not labored. Cough productive of yellow, green sputum. Breath soundswithin normal limits.CVS: Capillary refill less than 2 seconds.SKIN: Skin is warm and dry. --16:45 08/03/19 Shaun Ladd RN.NURSING PROGRESS NOTES 3 Clinical Report - Nurses [facility] Emergency Department [address] [place] [address] Phone #: ext- [phone] 08/03/2019 16:28 Patient: MILLIE PAYAN Sex: F : 1980 Age: 38y Reassurance given. Bed placed in lowest position. Brakes of bed on. Patient ready for evaluation- ED physician and PA notified. --16:35 08/03/19 [facility] Patient walked to radiology with durable medical equipment technician. ([id number]). --16:59 08/03/19 Shaun Ladd RN Correction --17:18 08/03/19 Shaun Ladd RN Patient walked to radiology with durable medical equipment technician. ([id number]). Patient walked back from radiology. ([id number]). Not transported from durable medical equipment technician. --17:18 08/03/19 Shaun Ladd RN 17:27 08/03/19. BP: 117/61. MAP: 79. HR: 68. RR: 16. O2 saturation: 97%. --17:28 08/03/19 [facility]1.DISPOSITION / DISCHARGE 17:29 08/03/19. BP: 117/61. MAP: 79. HR: 68. RR: 16. O2 saturation: 97%. Temp: 98.1 F. --17:29 08/03/19 [facility] Tech1 17:39 08/03/19. Departure time: 17:39 08/03/2019. Condition at departure: unchanged. No learning barriers present. Discharge instructions provided and reviewed with the patient. Reviewed medication(s) side effects, precautions, dosing and course information. Prescription(s) sent electronically to pharmacy. Reviewed rest instructions (increase fluids). Reviewed referrals. Provided to follow-up provider. Patient verbalized understanding. Written instructions provided in [place]. The patient was discharged by the physician veterinary assistant technician. She was discharged home. She left ambulatory and via private vehicle. Patient driving. --17:39 08/03/19 Shaun Ladd RN 17:38 08/03/19. Pain level now 0/10. --17:39 08/03/19 Shaun Ladd RN.Locked/Released at 08/03/2019 19:12 by Shaun Ladd RN Name Value Range Interpretation Code Description Data Caridad rce(s) Supporting Document(s) ID Date Data Source [id number] 08/03/2019 04:37:00 PM EDT [facility] 1 Clinical Report - Physicians/Mid Levels [facility] Emergency Department [address] [place] [address] Phone #: ext- [phone] 08/03/2019 16:28 Patient: MILLIE PAYAN Sex: F : 1980 Age: 38y Time Seen: 16:34 08/03/2019. Arrived- By private vehicle. Historian- patient. Disposition decision: 17:27 08/03/2019.HISTORY OF PRESENT ILLNESS Chief Complaint: COUGH. congestion. This started about 1-2 days ago and is still present. It was abrupt in onset and has been constant. The illness is described as moderate. The patient has had sputum production, a cough, nasal congestion and a nasal discharge. No difficulty breathing, chest discomfort or pain, fever or muscle aches. No chills, sore throat, sinus pressure or sinus drainage. (Pt reports a h/o CF. When she gets sick like this, she requires antibiotics. No fever reported. No travel. This feels like a typical bronchitis). Additional history - No known contact with a sick individual. Similar symptoms previously. Recent medical care: Not recently seen/assessed.REVIEW OF SYSTEMSNo chills, fatigue, fever, double vision or ear pain. No chest pain, difficulty breathing, abdominal pain,diarrhea or nausea. No vomiting, urinary problems, back pain or headache. The patient has had a runnynose and a cough.PAST HISTORYProblems:Anxiety.Ptsd.Cystic fibrosis. Additional Surgeries: Acl repair. . Medial meniscus removal. Tonsillectomy Adenoidectomy. Tympanostomy Tubes. Medications: Mucinex Oral. Shira-D Allergy Congestion Oral. 2 Clinical Report - Physicians/Mid Levels [facility] Emergency Department [address] [place] [address] Phone #: ext- [phone] 08/03/2019 16:28 Patient: MILLIE PAYAN Sex: F : 1980 Age: 38y traZODone HCl Oral. busPIRone HCl Oral. Zoloft Oral. Levothyroxine Sodium Oral. DuoNeb. Allergies: Ibuprofen. Keflex. Sulfa Antibiotics.SOCIAL HISTORYNever smoker. No alcohol use or drug use.ADDITIONAL NOTESThe nursing notes have been reviewed with agreement regarding the chief complaint, HPI, ROS, PMH andpatient medications and allergies.PHYSICAL EXAMVital Signs: 08/03/2019 16:30 BP: 133/82. MAP: 99. HR: 79. RR: 18. O2 saturation: 96%. Temp: 98.5 F.Pain level now: 0/10. Have been reviewed and appear to be correct. Blood pressure normal. Heart ratenormal. Respiratory rate normal. Temperature normal. Oxygen saturation normal.Appearance: Alert. No acute distress.Eyes: Pupils equal, round and reactive to light. Eyes normal inspection.ENT: Ears normal. Nose normal. Pharynx normal. Uvula midline.Neck: Normal inspection.CVS: Normal heart rate and rhythm. Heart sounds normal.Respiratory: No respiratory distress. Breath sounds normal.Abdomen: Soft and nontender.Skin: Skin warm and dry. Normal skin color. No rash.Extremities: Extremities exhibit normal ROM.Neuro: Oriented X 3.LABS, X- RAYS, AND EKGChest X-ray: (Allan mueller Brian - 08/03/2019 5:06:28 PM No acute disease). Laboratory Tests: Laboratory tests have been ordered, with results reviewed and considered in the medical decision making process. Chest 2 View: (YING: 08/03/2019 16:51) ( MsgRcvd 08/03/2019 18:44) In Progress CHEST 2 VIEWS Reason(s): h/o CF. currently c/o chest congestion/cough TRANSPORTATION: WC IV? O2? Oxygen?(No) Room: ED : Will sign waiver Exam CHEST 2 VIEWS [facility] 3 Clinical Report - Physicians/Mid Levels [facility] Emergency Department [address] [place] [address] Phone #: ext- [phone] 08/03/2019 16:28 Patient: MILLIE PAYAN Sex: F : 1980 Age: 38y [address] [place] [address] PHONE: [phone] FAX: [phone] Name .................. : ORA Martinez Acct Number.................. : [id number] ROOM. ................. : -1A MR Number ................... : [id number] Stay type ............. : E/R Discharge Date......... ... : 08/03/19 Admit Date ......... : 08/03/19 Admit Phys .................... : [facility] Date of ....... : 1980 Family Phys ................... : NON STAFF Phone .................. : [phone] Age ................................ : 38 Film# .................. .:[id number] Sex ................................. : F Unsigned transcriptions are preliminary reports and do not represent a medical or legal document CHEST 2 VIEWS [id number] COMPLETE:08/03/19 17:45 [facility] [place] [id number] Reason(s): h/o CF. currently c/o chest congestion/cough CHEST X-RAY: PA AND LATERAL VIEWS HISTORY: Congestion, cough. FINDINGS: The cardiac and mediastinal silhouettes appear normal and the lungs are clear. The bones and soft tissues are normal. The upper abdomen is unremarkable. IMPRESSION: No acute disease identifiable. Electronically Reviewed and Signed By DCTVASHTI , SIGNDATEGRAYSON Transcribe Initials: MARTY , Transcribe Date: 08/03/19 18:43, Dictation Date: <<REP DIST>> Page 1 of 1.PROGRESS AND PROCEDURESCourse of Care: 17:27 08/03/19. Allan mueller Brian - 08/03/2019 5:06:28 PM No acute disease CXR report as above. Will tx with antibiotics given h/o CF. Given h/o CF, will treat with antibiotics. Disposition: Discharged home. Discharge decision based on the following: patient's condition is stable; patient is ambulatory; patient's exam is stable; no abnormal test results; stable condition on repeat evaluation; social support is adequate; transportation is available; follow-up is available; clinical impression is consistent with outpatient treatment. 4 Clinical Report - Physicians/Mid Levels [facility] Emergency Department [address] [place] [address] Phone #: ext- [phone] 08/03/2019 16:28 Patient: MILLIE PAYAN Sex: F : 1980 Age: 38yCLINICAL IMPRESSION Acute bronchitis.INSTRUCTIONS Drink plenty of fluids. (OTC cold medications as needed for symptoms. Take the antibiotics as directed. return to the ER for worsening or concerning symptoms). Warnings: GENERAL WARNINGS: Return or contact your physician immediately if your condition worsens or changes unexpectedly, if not improving as expected, or if other problems arise. Specifically return if problem worsens or fails to resolve. Your Current Medications: Your current home medications have been reviewed. CONTINUE TAKING THE FOLLOWING MEDICATIONS: Shira-D Allergy Congestion Oral. busPIRone HCl Oral. DuoNeb*. Levothyroxine Sodium Oral. Mucinex Oral. traZODone HCl Oral. Zoloft Oral. Prescription Medications: clindamycin HCl 300 mg capsule Take 1 capsule every eight hours -- Dispense 30 capsule. Refills: 0. Substitution permitted. Pharmacy - [facility] [phone] [facility] ; [place] [address]. . Follow-up: Follow up with your healthcare provider in about three days. Call for an appointment. Reason for referral: evaluation and treatment. Summary of care provided to patient via paper. Understanding of the discharge instructions verbalized by patient.(Electronically signed by LISSA Balderas 08/03/2019 20:39) 5Clinical Report - Physicians/Mid Levels [facility] Emergency Department [address] [place] [address] Phone #: ext- [phone] 08/03/2019 16:28 Patient: MILLIE PAYAN Sex: F : 1980 Age: 38y Name Value Range Interpretation Code Description Data Caridad rce(s) Supporting Document(s) ID Date Data Source [id number] 05/30/2019 08:35:00 AM EST [facility] Name Value Range Interpretation Code Description Data Caridad rce(s) Supporting Document(s) TSH 4.860 uIU/mL 0.450-4.500 Above high normal [facility] T4,Free(Direct) 0.99 ng/dL 0.82-1.77 [facility] Procedure Social History Code Duration Value Status Description Data Source(s ) Smoking 06/01/2020 12:00:00 AM EST Patient has never smoked co mpleted Patient has never smoked [facility] ([facility], [facility]) Smoking 05/26/2019 12:00:00 AM EST Never Smoker completed Never S moker eCW1 ([employer]) Smoking 05/26/2019 12:00:00 AM EST Never Smoker completed Never S moker eCW1 ([employer]) Smoking 05/26/2019 12:00:00 AM EST Never Smoker completed Never S moker eCW1 ([employer]) Smoking 05/26/2019 12:00:00 AM EST Never Smoker completed Never S moker eCW1 ([employer]) Smoking 05/26/2019 12:00:00 AM EST Never Smoker completed Never S jaidensanjeev eCW1 ([employer]) Vital Signs ID Date Data Source UNK Name Value Range Interpretation Code Description Data Source(s) Body temperature 96.9 [degF] 96.9 [degF] [facility] ([facility], [facility]) Oxygen saturation in Arterial blood by Pulse oximetry 97 % 97 % [facility] ([facility], [facility]) Respiratory rate 14 /min 14 /min [facility] ( [facility], [facility]) Heart rate 72 /min 72 /min [facility] ([facility], [facility]) Diastolic blood pressure 86 mm[Hg] 86 mm[Hg] [facility] ([facility], [facility]) Systolic blood pressure 124 mm[Hg] 124 mm[Hg] M EDENT ([facility], [facility]) Body mass index (BMI) [Ratio] 42.9 kg/m2 42.9 k g/m2 [facility] ([facility], [facility]) Body height 67 [in_i] 67 [in_i] [facility] ([facility]) 5'7" Body weight 274.00 [lb_av] 274.00 [lb_av] MEDEN T ([facility], [facility]) Body mass index (BMI) [Ratio] 42.0 kg/m2 42.0 k g/m2 [facility], [facility]) Body height 67 [in_i] 67 [in_i] [facility] ([facility], [facility]) 5'7" Body weight 268.00 [lb_av] 268.00 [lb_av] MEDEN T ([facility], [facility]) Body temperature 98.1 [degF] 98.1 [degF] [facility] ([facility], [facility]) Oxygen saturation in Arterial blood by Pulse oximetry 97 % 97 % [facility] ([facility], [facility]) Respiratory rate 16 /min 16 /min [facility] ( [facility], [facility]) Heart rate 75 /min 75 /min [facility] ([facility], [facility]) Diastolic blood pressure 71 mm[Hg] 71 mm[Hg] [facility] ([facility], [facility]) Systolic blood pressure 125 mm[Hg] 125 mm[Hg] M EDENT ([facility], [facility]) Body height 67 [in_i] 67 [in_i] eCW1 ([employer]) Body temperature 98.3 [degF] 98.3 [degF] eCW1 ( [employer]) Diastolic blood pressure 80 mm[Hg] 80 mm[Hg] eCW1 ([employer]) Systolic blood pressure 128 mm[Hg] 128 mm[Hg] e CW1 ([employer]) Body mass index (BMI) [Ratio] 47.76 kg/m2 47.76 kg/m2 eCW1 ([employer]) Respiratory rate 18 /min 18 /min eCW1 ([employer]) Deprecated Oxygen saturation in Capillary blood by Oximetry 97 % 97 % eCW1 ([employer]) Body weight Measured 305.0 [lb_av] 305.0 [lb_av ] eCW1 ([employer]) Body height 67 [in_us] 67 [in_us] eCW1 ([employer]) Heart rate 78 /min 78 /min eCW1 ([facility]) Body temperature 98.2 [degF] 98.2 [degF] eCW1 ( [employer]) Patient Treatment Plan of Care Planned Activity Planned Date Details Description Data Source (s) Trazodone Hydrochloride 50 MG Oral Tablet 05/26/2019 12:00:00 AM ES T eCW1 ([employer]) Trazodone Hydrochloride 50 MG Oral Tablet 05/26/2019 12:00:00 AM ES T eCW1 ([employer]) Trazodone Hydrochloride 50 MG Oral Tablet 05/26/2019 12:00:00 AM ES T eCW1 ([employer]) Trazodone Hydrochloride 50 MG Oral Tablet 05/26/2019 12:00:00 AM ES T eCW1 ([employer])
--- OUTSIDE RECORDS SUMMARY | 2020-07-11 05:34 | CCD | Continuity of Care Document ---
Author Author Radha PALOMINO [employer] Organization Unknown Address [address] [place] [address] [place] [address] Phone [phone] Care Team Providers Care [employer] Driver Name Role Phone PCP Out Of Area AUTM Unavailable [employer] [facility] [phone] Problems Description No Information Available Social History [...] Date Location Provider Dx Diagnosis Office Visit 05/01/2020 4:05p Main Office Miryam Palomino NP J00 Acute nasopharyngitis [common cold] Z20.828 Contact w and exposure to ot h viral communicable diseases Assessments Date Code Description Provider 05/01/2020 J00 Acute nasopharyngitis [common co ld] Miryam Palomino NP 05/01/2020 Z20.828 Contact with and (thapa spected) exposure to other viral communicable diseases Miryam Palomino NP Plan of Treatment No Information Available Functional Status Description No Information Available Mental Status Description No Information Available Referrals Description No Information Available
[2020-07-11] MEDS ORDERED: ZOLO100T PO (05:50)
[2020-07-11] MEDS ORDERED: SYNT150T PO (05:50)
--- OUTSIDE RECORDS SUMMARY | 2020-07-11 06:47 | CCD ---
Author Author [facility] Organization [facility] Address Unknown Phone Unavailable Care Team Providers Care Boat Driver Name Role Phone NON, PHYSICIAN STAFF Unavailable Unavailable Brigida Vallejo PA PA Unavailable [phone] Brigida Vallejo PA PA Unavailable [phone] Brigida Vallejogan PA PA Unavailable [phone] Brigida Vallejogan PA PA Unavailable [phone] Efren FERNÁNDEZ MD Unavailable Unavailable Efren FERNÁNDEZ MD Unavailable Unavailable Efren FERNÁNDEZ MD Unavailable Unavailable Smith, Miryam RESIDENTIAL SUBSTANCE ABUSE COUNSELOR Unavailable Unavailable Smith, Miryam RESIDENTIAL SUBSTANCE ABUSE COUNSELOR Unavailable Unavailable Smith, Miryam RESIDENTIAL SUBSTANCE ABUSE COUNSELOR Unavailable Unavailable Smith, Miryam RESIDENTIAL SUBSTANCE ABUSE COUNSELOR Unavailable Unavailable Smith, Miryam RESIDENTIAL SUBSTANCE ABUSE COUNSELOR Unavailable Unavailable Smith, Miryam RESIDENTIAL SUBSTANCE ABUSE COUNSELOR Unavailable Unavailable Smith, Miryam RESIDENTIAL SUBSTANCE ABUSE COUNSELOR Unavailable Unavailable Smith, Miryam RESIDENTIAL SUBSTANCE ABUSE COUNSELOR Unavailable Unavailable Smith, Miryam RESIDENTIAL SUBSTANCE ABUSE COUNSELOR Unavailable Unavailable Smith, Miryam RESIDENTIAL SUBSTANCE ABUSE COUNSELOR Unavailable Unavailable Smith, Miryam RESIDENTIAL SUBSTANCE ABUSE COUNSELOR Unavailable Unavailable Loredo, Ashley Beverley PA Unavailable [...] is protected by Article 27-F of the [facility] Public Health law. If you continue you may have access to information: Regarding HIV / AIDS; Provided by facilities licensed or operated by the [facility] Office of Mental Health; or Provided by the [facility] Office for People With Developmental Disabilities. If such information is present, then the following [facility] mandated warning applies: This information has been [...] law may result in a fine or mcfp sentence or both. A general authorization for [...] Seasonal Seasonal Unknown Active eCW1 ([facility]) Hydrocodone-Acetaminophen Hydrocodone-Acetaminophen Acetamin ophen 21.7 MG/ML / Hydrocodone Bitartrate 0.5 MG/ML Oral Solution hives Active eCW1 ([facility]) Family History Family Member Name Family Member Gender Family Member Status Date o f Status Description Data Source(s) Unknown Male Problem MEDENT ([facility]) () Encounters Encounter Providers Location Date Indications Data Source(s ) Outpatient Attender: Beverley zendejas 06/01/2020 07:40:00 AM EST MEDENT ([facility]) Outpatient Attender: Miryam manzano 05/01/2020 03:05:00 PM EST MEDENT ([facility]) Unknown [facility] [id number] [place] [address] 03/20/2020 12:00:00 AM EDT eCW1 ([facility]) Unknown [facility] [id number] [place] [address] 02/13/2020 12:00:00 AM EDT eCW1 ([facility]) Outpatient [facility] [id number] [place] [address] 02/12/2020 12:00:00 AM EDT eCW1 ([facility]) Unknown [facility] [id number] [place] [address] 02/06/2020 12:00:00 AM EDT eCW1 ([facility]) Unknown [facility] [id number] [place] [address] 11/06/2019 12:00:00 AM EDT eCW1 ([facility]) Outpatient Attender: Danin Nichols kevin: Danni Daugherty: Danni ALCARAZ CPSCAORT-LABPNP 2019 01:13:00 PM EDT COVID 19 EMPL OYEE SCREENING [facility] COVID 19 EMPLOYEE SCREENING Outpatient Attender: CHRISTIAN FERNÁNDEZ MD CPSCAORT-LABPD 10/24/2019 10 :51:00 AM EDT DRUG SCREENING [facility] DRUG SCREENING Outpatient 1 [facility] [id number] [place] [address] 10/24/2019 12:00:00 AM EDT eCW1 ([facility]) Outpatient [facility] [id number] [place] [address] 08/08/2019 12:00:00 AM EDT eCW1 ([facility]) Outpatient [facility] [id number] [place] [address] 08/07/2019 12:00:00 AM EDT eCW1 ([facility]) Outpatient [facility] [id number] [place] [address] 08/07/2019 12:00:00 AM EDT eCW1 ([facility]) Emergency Attender: SHANTE STONER MDConsultant: STAFF NON 08/03/2019 04:37:00 PM EDT - 08/03/2019 05:39:00 PM EDT [facility] Patient discharged. Outpatient 1 [facility] [id number] [place] [address] 08/01/2019 12:00:00 AM EDT eCW1 ([facility]) Outpatient 1 [facility] [id number] [place] [address] 06/08/2019 12:00:00 AM EST eCW1 ([facility]) Outpatient [facility] [id number] [place] [address] 05/29/2019 12:00:00 AM EST eCW1 ([facility]) Outpatient 1 [facility] [id number] [place] [address] 05/29/2019 12:00:00 AM EST eCW1 ([facility]) Outpatient 1 [facility] [id number] [place] [address] 05/26/2019 12:00:00 AM EST eCW1 ([facility]) [...] Ondansetron 06/01/2020 12:00:00 AM EST active MEDENT ([facility]) Trazodone Hydrochloride 50 MG Oral Tablet Trazodone [...] 1 tablet at bedtime as needed eCW1 ([facility]) Trazodone Hydrochloride 50 MG Oral Tablet Trazodone HC l 50 MG Trazodone HCl 50 MG 05/26/2019 12:00:00 AM EST active 1 tablet at bedtime as needed eCW1 ([facility]) Trazodone Hydrochloride 50 MG Oral Tablet Trazodone HC l 50 MG Trazodone HCl 50 MG 05/26/2019 12:00:00 AM EST 1.0 {tablet_at_bedtime_as_needed} active Trazodone HCl 50 MG eCW1 ([facility]) Trazodone Hydrochloride 50 MG Oral Tablet Trazodone HC l 50 MG Trazodone HCl 50 MG 05/26/2019 12:00:00 AM EST active 1 tablet at bedtime as needed eCW1 ([facility]) Trazodone Hydrochloride 50 MG Oral Tablet Trazodone HC l 50 MG Trazodone HCl 50 MG 05/26/2019 12:00:00 AM EST 1.0 {tablet_at_bedtime_as_needed} active Trazodone HCl 50 MG eCW1 ([facility]) Trazodone Hydrochloride 50 MG Oral Tablet Trazodone HC l 50 MG Trazodone HCl 50 MG 05/26/2019 12:00:00 AM EST active 1 tablet at bedtime as needed eCW1 ([facility]) Trazodone Hydrochloride 50 MG Oral Tablet Trazodone HC l 50 MG Trazodone HCl 50 MG 05/26/2019 12:00:00 AM EST 1.0 {tablet_at_bedtime_as_needed} active Trazodone HCl 50 MG eCW1 ([facility]) Insurance Providers Payer name Policy type / Coverage type Policy ID Covered alliance party ID Covered alliance party's relationship to carrion Policy Carrion Plan Information [facility] [id number] SP [id number] EMEDNY [id number] SP [id number] SELF PAY S [facility]-O/P [id number] 18 [id number] [facility]-O/P [id number] 18 [id number] MEDICAID [id number] SP [id number] ANSI-Commercial [id number] ANSI-Commercial [id number] MEDICAID M [id number] Self [id number] WILMER I [id number] Self [id number] ANSI-Commercial [id number] WILMER [id number] Self [id number] [employer]BS [id number] Self [id number] SELF PAY (1) UNAVAILABLE UNAVA ILABLE [employer] (155) UNAVAILABLE UNAVAILABLE [place] [employer] Commercial [id number] Self [id number] BCBS Ppo Medigap Part B [id number] Self [id number] BCBS Ppo Medigap Part B [id number] Self [id number] [id number] BCBS Ppo Health Maintenance Organization (HMO) [id number] Self [id number] [place] [employer] Commercial [id number] Self [id number] BCBS Ppo Medigap Part B [id number] Self [id number] BCBS Ppo Health Maintenance Organization (HMO) [id number] Self [id number] [place] Commercial [id number] Self [id number] BCBS Ppo Health Maintenance Organization (HMO) [id number] Self [id number] [employer] Commercial [id number] Self [id number] BCBS Ppo Health Maintenance Organization (HMO) [id number] Self [id number] [place] Commercial [id number] Self [id number] BCBS Ppo Health Maintenance Organization (HMO) [id number] Self [id number] MVP [id number] 18 [id number] BCBS Ppo Health Maintenance Organization (HMO) Se lf [place] Commercial Self MVP SELECT [id number] SP [id number] SELF PAY UNAVAILABLE SP UNAVAILA BLE MVP DO Not Use Health Maintenance Organization (HMO) Self [place] Medicaid F [id number] SELF 7 [id number] WIL[place] [id number] SP [id number] MVP Health Ins- Ppo/Epo Health Maintenance Organization (HMO) Self MVP [id number] 18 [id number] MEDICAID [place] [id number] SP AY [id number] [place] I [id number] Self [id number] MEDICAID W [id number] S [id number] MEDICAID W [id number] S [id number] PCP [place] CARE O [id number] S [id number] SELFPAY 5 UNAVAILABLE 1 UNAVAILA BLE MEDICAID 3 [id number] 1 [id number] WILMER 7 [id number] 1 [id number] [place] MEDICAID 2 [id number] 1 [id number] SELF PAY 2 UNAVAILABLE 1 UNAVAILA BLE BC EXC PLANS 1 [id number] 1 [id number] WILMER 7 [id number] 1 [id number] Self [id number] Problems, Conditions, and Diagnoses Code Display Name Description Problem Type Effective Dates Data Source(s) J01.11 72483949 Acute recurrent frontal sinusitis Problem 05/26/2019 12:00:00 AM EST eCW1 ([facility]) Z23 930464893 Immunization due Problem 05/26/2019 12:00:00 AM EST eCW1 ([facility]) N64.4 07876346808680782 Breast pain, right Problem 05/26/2019 12:00:00 AM EST eCW1 ([facility]) J01.11 06577907 Acute recurrent frontal sinusitis Problem 05/26/2019 12:00:00 AM EST eCW1 ([facility]) Z23 [id number] Immunization due Problem 05/26/2019 12:00:00 AM EST eCW1 ([facility]) N64.4 [id number] Breast pain, right Problem 05/26/2019 12:00:00 AM EST eCW1 ([facility]) J209 Acute bronchitis, unspecified Acute bronchitis, unspec ified Diagnosis 08/03/2019 04:37:00 PM EDT [facility] R05 Cough Cough Diagnosis 08/03/2019 04:37:00 PM ED T [facility] Surgeries/Procedures Procedure Description Date Indications Data Source(s) Influenza Fluzone (6-35mo) 05/26/2019 12:00:00 AM EST eCW1 ([facility]) IMMUNIZATION ADMIN 05/26/2019 12:00:00 AM EST eCW1 ([facility]) Bmi is documented above normal parameters and a follow-up pl an is documented 05/26/2019 12:00:00 AM EST eCW1 ([facility]) TOBACCO NON-USER 05/26/2019 12:00:00 AM EST eCW1 ([facility]) Screening for clinical depression is doc umented as negative, a follow-up plan is not required 05/26/2019 12:00:00 AM EST eCW1 ([facility]) Results ID Date Data Source [id number] 06/01/2020 12:00:00 AM EST [facility] Name Value Range Interpretation Code Description Data Caridad rce(s) Supporting Document(s) SARS coronavirus 2 Ag Negative [facility] This lab was ordered by [facility] and reported by [facility]. ID Date Data Source TSH+Free T4 02/13/2020 12:49:35 PM EDT eCW1 ([facility]) Name Value Range Interpretation Code Description Data Caridad rce(s) Supporting Document(s) Thyroxine (T4) free [Mass/volume] in Serum or Plasma 0.88 T4,Free(Direct) eCW1 ([facility]) Thyrotropin [Units/volume] in Serum or Plasma by Detec tion limit <= 0.005 mIU/L 12.400 TSH eCW1 ([facility]) ID Date Data Source [id number] 02/13/2020 08:35:00 AM EDT [facility] Name Value Range Interpretation Code Description Data Caridad rce(s) Supporting Document(s) TSH 12.400 uIU/mL 0.450-4.500 Above high normal [facility] T4,Free(Direct) 0.88 ng/dL 0.82-1.77 [facility] ID Date Data Source [id number] 11/04/2019 12:16:00 AM EDT [facility] Name Value Range Interpretation Code Description Data Caridad rce(s) Supporting Document(s) Respiratory specimen severe acute respir atory syndrome coronavirus 2 (SARS-CoV-2) RNA [facility] ital This lab was ordered by [facility] Juan johnson and reported by [facility]. ID Date Data Source [id number] 11/04/2019 12:09:00 AM EDT [facility] COVID-19 Specimen Source NASOPHARYNGEAL Is Patient admitted or to be admitted? N Name Value Range Interpretation Code Description Data Caridad rce(s) Supporting Document(s) SARS-CoV-2 RNA Negative Normal (applies to non-numeric r esults) [facility] 2019-novel Coronavirus (2019-nCoV) not d etected by [...] in accordance with CLIA regulations, College of [employer] (CAP) guidelines (Aug 10, 2019), and FDA guidance (Jul 22, 2019). This test is only for use under the Food and Drug Administration's Emergency Use Authorization. THIS IS A STATE REPORTABLE COMMUNICABLE DISEASE. Performing Lab Normal (applies to non-numeric r esults) [facility] Is Patient Admitted or Awaiting Admissio n?:N COVID-19 Specimen Source: RESIDENTIAL SUBSTANCE ABUSE COUNSELOR Test performed or referred by The [address] [address] ID Date Data Source [id number] 08/04/2019 04:59:00 PM EDT [facility] [address] [place] [address] PHONE: [phone] FAX: [phone] Name .................. : PAYANCRUZ ARIASBarber Martinez Acct Number.................. : [id number] ROOM. ................. : TR-1A MR Number ................... : [id number] Stay type ............. : E/R Discharge Date......... ... : 08/03/19 Admit Date ......... : 08/03/19 Admit Phys .................... : HERBIE NUNEZ Date of ....... : 1980 Family Phys ................... : NON STAFF Phone .................. : [phone] Age ................................ : 38 Film# .................. .:[id number] Sex ................................. : F Unsigned transcriptions are preliminary reports and do not represent a medical or legal document CHEST 2 VIEWS 96597 COMPLETE:08/03/19 17:45 [facility] [address] Reason(s): h/o CF. currently c/o chest congestion/cough [...] rce(s) Supporting Document(s) ID Date Data Source [id number] 08/03/2019 04:37:00 PM EDT [facility] 1 OrderSheet [facility] Emergency Department [address] [place] [address] Phone #: ext- [phone] 08/03/2019 16:28 Patient: MILLIE PAYAN Sex: F [...] rce(s) Supporting Document(s) ID Date Data Source [id number] 08/03/2019 04:37:00 PM EDT [facility] 1 Medication Reconciliation Report [facility] Emergency Department [address] [place] [address] Phone #: ext- [phone] 08/03/2019 16:28 Patient: [...] Dispense 30 capsule. Refills: 0.Substitution permitted.Pharmacy - [facility] [address] ; [place] [address]. . -- LISSA Balderas Name Value Range Interpretation Code Description Data Caridad [facility](s) Supporting Document(s) ID Date Data Source [id number] 08/03/2019 04:37:00 PM EDT [place] [address] Medication Administration Record [facility] Emergency Department [address] [place] [address] Phone #: ext [phone] 08/03/2019 16:28 Patient: MILLIE PAYAN Sex: F : 1980 Age: 38yWeight: 131.5 kgHeight/Length: 66 inBMI: 46.8ALLERGIES: Ibuprofen, Keflex, Sulfa AntibioticsDate/Time Medication Administered Medication Ordered Name Value Range Interpretation Code Description Data [facility] Supporting Document(s) ID Date Data Source [id number] 08/03/2019 04:37:00 PM EDT [facility] 1 General Instructions [facility] Emergency Department [address] [place] [address] Phone #: ext [phone] 08/03/2019 16:28 Patient: MILLIE PAYAN Sex: F [...] Dispense 30 capsule. Refills: 0.Substitution permitted.Pharmacy - [facility] [address] ; [place], [place] [address]. .Follow-up:Follow up with your healthcare provider in about three days. Call for an appointment. Reason for referral:evaluation and treatment. Summary of care provided to patient via paper.Understanding of the discharge instructions verbalized by patient. ADDITIONAL INFORMATIONBronchitis, Antibiotic Treatment (Adult) 2 General Instructions [facility] Emergency Department [address] [place] [address] Phone #: ext- [phone] 08/03/2019 16:28 Patient: MILLIE PAYAN Sex: F [...] away from secondhand smoke. 3 General Instructions [facility] Emergency Department [address] [place] [address] Phone #: ext- [phone] 08/03/2019 16:28 Patient: MILLIE PAYAN Sex: F : 1980 Age: 38y You may use wpnt-dey-obimens medicines to control fever or pain, unless [...] loosen mucus in your nose and lungs. Edhr-scc-mpfhreu cough, cold, and sore-throat medicines will not [...] or pain with breathing 4 General Instructions [facility] Emergency Department [address] [place] [address] Phone #: ext- [phone] 08/03/2019 16:28 Patient: MILLIE PAYAN Sex: F : 1980 Age: 38y [id number] [employer]. [address] [place] [address]. All rights reserved. This information is not intended as asubstitute for professional [facility] care. Always follow your healthcare professional's instructions. You have been given the following additional information: Bronchitis, Antibiotic Treatment (Adult)(Electronically signed by LISSA Balderas 08/03/2019 20:39) Name Value Range Interpretation Code Description Data Caridad rce(s) Supporting Document(s) ID Date Data Source [id number] 08/03/2019 04:37:00 PM EDT [facility] 1 Clinical Report - Nurses [facility] Emergency Department [address] [place] [address] Phone #: [phone]- [phone] 08/03/2019 16:28 Patient: MILLIE PAYAN Sex: F : 1980 Age: 38yTRIAGEHistorian: patient.Triage [...] Mucinex Oral. --16:31 08/03/19August, R.N.AllergiesSulfa Antibiotics. --16:31 08/03/19 Betty, AugustBryantKeflex. --16:31 08/03/19, AugustRashid.Ibuprofen. --16:31 08/03/19August, Rashid.PROBLEMS:Anxiety.Ptsd.Cystic fibrosis. --16:32 08/03/19 Maria De Jesus, Kassie RChante.ADDITIONAL SURGERIES:Acl repair..Medial meniscus removal. 2 Clinical Report - Nurses [facility] Emergency Department [address] [place] [address] Phone #: ext- [phone] 08/03/2019 16:28 Patient: MILLIE PAYAN Sex: F : 1980 Age: 38y Tonsillectomy Adenoidectomy. Tympanostomy Tubes. --16:32 08/03/19 Maria De Jesus, KassieRashid. History PAST MEDICAL HX: Last normal menstrual [...] integrity risk identified. --16:35 08/03/19 Maria De Jesus Kassie, R.N. Interventions To treatment room. --16:35 08/03/19 Maria De Jesus August, R.N.PHYSICAL [id number] 08/03/19. Ambulatory to room.GENERAL / NEURO / PSYCH: Alert. Oriented X 4.HEENT: Runny nose- thin, clear discharge. Pharynx within normal limits. Voice within normal limits.RESPIRATORY: Respirations not labored. Cough productive of yellow, green sputum. Breath soundswithin normal limits.CVS: Capillary refill less than 2 seconds.SKIN: Skin is warm and dry. --16:45 08/03/19 Shaun Ladd RN.NURSING PROGRESS NOTES 3 Clinical Report - Nurses [facility] Emergency Department [address] [place] [address] Phone #: ext- [phone] 08/03/2019 16:28 Patient: MILLIE PAYAN Sex: F : 1980 Age: 38y Reassurance given. Bed placed in lowest position. Brakes of bed on. Patient ready for evaluation- ED physician and PA notified. --16:35 08/03/19 Kassie Pretty, R.N. Patient walked to radiology with certified emergency vehicle technician. (1956). --16:59 08/03/19 Shaun Ladd RN Correction --17:18 08/03/19 Shaun Ladd RN Patient walked to radiology with certified emergency vehicle technician. ([id number]). Patient walked back from radiology. (1711). Not transported from certified emergency vehicle technician. --17:18 08/03/19 Shaun Ladd RN 17:27 08/03/19. BP: 117/61. MAP: 79. HR: 68. RR: 16. O2 saturation: 97%. --17:28 08/03/19 [facility], [facility] Tech1.DISPOSITION / DISCHARGE 17:29 08/03/19. BP: 117/61. MAP: 79. HR: 68. RR: 16. O2 saturation: 97%. Temp: 98.1 F. --17:29 08/03/19 [facility], [facility] Tech1 17:39 08/03/19. Departure time: 17:39 08/03/2019. Condition at departure: unchanged. No learning barriers present. Discharge instructions provided and reviewed with the patient. Reviewed medication(s) side effects, precautions, dosing and course information. Prescription(s) sent electronically to pharmacy. Reviewed rest instructions (increase fluids). Reviewed referrals. Provided to follow-up provider. Patient verbalized understanding. Written instructions provided in Iranian. The patient was discharged by the physician radiology assistant. She was discharged home. She left ambulatory and via private vehicle. Patient driving. --17:39 08/03/19 Shaun Ladd RN 17:38 08/03/19. Pain level now 0/10. --17:39 08/03/19 Shaun Ladd RN.Locked/Released at 08/03/2019 19:12 by Shaun Ladd RN Name Value Range Interpretation Code Description Data Caridad rce(s) Supporting Document(s) ID Date Data Source [id number] 08/03/2019 04:37:00 PM EDT [facility] 1 Clinical Report - Physicians/Mid Levels [facility] Emergency Department [address] [place] [address] Phone #: ext- [phone] 08/03/2019 16:28 Patient: MILLIE PAYAN Sex: F [...] Oral. 2 Clinical Report - Physicians/Mid Levels [facility] Emergency Department [address] [place] [address] Phone #: ext- [phone] 08/03/2019 16:28 Patient: MILLIE PAYAN Sex: F [...] Will sign waiver Exam CHEST [address] [facility] 3 Clinical Report - Physicians/Mid Levels [facility] Emergency Department [address] [place] [address] Phone #: ext- [phone] 08/03/2019 16:28 Patient: MILLIE PAYAN Sex: F : 1980 Age: 38y [address] [place] [address] PHONE: [phone] FAX: [phone] Name .................. : ORA Martinez Acct Number.................. : [id number] ROOM. ................. : [facility] MR Number ................... : [id number] Stay type ............. : E/R Discharge Date......... ... : 08/03/19 Admit Date ......... : 08/03/19 Admit Phys .................... : HERBIE NUNEZ Date of ....... : 1980 Family Phys ................... : NON STAFF Phone .................. : [phone] Age ................................ : 38 Film# .................. .:[id number] Sex ................................. : F Unsigned transcriptions are preliminary reports and do not represent a medical or legal document CHEST 2 VIEWS 91931 COMPLETE:08/03/19 17:45 [facility] [address] Reason(s): h/o CF. currently c/o chest congestion/cough CHEST X-RAY: PA AND LATERAL VIEWS HISTORY: Congestion, cough. FINDINGS: The cardiac and mediastinal silhouettes appear normal and the lungs are clear. The bones and soft tissues are normal. The upper abdomen is unremarkable. IMPRESSION: No acute disease identifiable. Electronically Reviewed and Signed By DCTNAME , SIGNDATEGRAYSON Transcribe Initials: MARTY , Transcribe [...] treatment. 4 Clinical Report - Physicians/Mid Levels [facility] Emergency Department [address] [place] [address] Phone #: ext- [phone] 08/03/2019 16:28 Patient: [...] capsule. Refills: 0. Substitution permitted. Pharmacy - [facility] [address] ; [place] [address]. . Follow-up: Follow up with your healthcare provider in about three days. Call for an appointment. Reason for referral: evaluation and treatment. Summary of care provided to patient via paper. Understanding of the discharge instructions verbalized by patient.(Electronically signed by LISSA Balderas 08/03/2019 20:39) 5Clinical Report - Physicians/Mid Levels [facility] [facility] Emergency Department [address] [place] [address] Phone #: [phone] 08/03/2019 16:28 Patient: MILLIE PAYAN Sex: F : 1980 Age: 38y Name Value Range Interpretation Code Description Data Caridad rce(s) Supporting Document(s) ID Date Data Source [id number] 05/30/2019 08:35:00 AM EST [facility] Name Value Range Interpretation Code Description Data Caridad rce(s) Supporting Document(s) TSH 4.860 uIU/mL 0.450-4.500 Above high normal [facility] T4,Free(Direct) 0.99 ng/dL 0.82-1.77 [facility] Procedure Social History Code Duration Value Status Description Data Source(s ) Smoking 06/01/2020 12:00:00 AM EST Patient has never smoked co mpleted Patient has never smoked MEDENT ([facility], [facility]) Smoking 05/26/2019 12:00:00 AM EST Never Smoker completed Never S moker eCW1 ([facility]) Smoking 05/26/2019 12:00:00 AM EST Never Smoker completed Never S moker eCW1 ([facility]) Smoking 05/26/2019 12:00:00 AM EST Never Smoker completed Never S moker eCW1 ([facility]) Smoking 05/26/2019 12:00:00 AM EST Never Smoker completed Never S moker eCW1 ([facility]) Smoking 05/26/2019 12:00:00 AM EST Never Smoker completed Never S moker eCW1 ([facility]) Vital Signs ID Date Data Source UNK Name Value Range Interpretation Code Description Data Source(s) Body temperature 96.9 [degF] 96.9 [degF] MEDENT ([facility], [facility]) Oxygen saturation in Arterial blood by Pulse oximetry 97 % 97 % [facility] ([facility], [facility]) Respiratory rate 14 /min 14 /min MED[facility] ( [facility], [facility]) Heart rate 72 /min 72 /min [facility] ([facility], [facility]) Diastolic blood pressure 86 mm[Hg] 86 mm[Hg] [facility] Systolic blood pressure 124 mm[Hg] 124 mm[Hg] M EDENT ([facility], [facility]) Body mass index (BMI) [Ratio] 42.9 kg/m2 42.9 k g/m2 [facility] ([facility], [facility]) Body height 67 [in_i] 67 [in_i] MEDENT ([facility]) 5'7" Body weight 274.00 [lb_av] 274.00 [lb_av] MEDEN T ([facility]) Body mass index (BMI) [Ratio] 42.0 kg/m2 42.0 k g/m2 [facility] ([facility], [facility]) Body height 67 [in_i] 67 [in_i] MEDENT ([facility], [facility]) 5'7" Body weight 268.00 [lb_av] 268.00 [lb_av] MEDEN T ([facility], [facility]) Body temperature 98.1 [degF] 98.1 [degF] MEDENT ([facility], [facility]) Oxygen saturation in Arterial blood by Pulse oximetry 97 % 97 % [facility] ([facility], [facility]) Respiratory rate 16 /min 16 /min [facility] ( [facility], [facility]) Heart rate 75 /min 75 /min MED[facility] ([facility], [facility]) Diastolic blood pressure 71 mm[Hg] 71 mm[Hg] MEDENT ([facility], [facility]) Systolic blood pressure 125 mm[Hg] 125 mm[Hg] M EDENT ([facility], [facility]) Body height 67 [in_i] 67 [in_i] eCW1 ([facility]) Body temperature 98.3 [degF] 98.3 [degF] eCW1 ( [facility]) Diastolic blood pressure 80 mm[Hg] 80 mm[Hg] eCW1 ([facility]) Systolic blood pressure 128 mm[Hg] 128 mm[Hg] e CW1 ([facility]) Body mass index (BMI) [Ratio] 47.76 kg/m2 47.76 kg/m2 eCW1 ([facility]) Respiratory rate 18 /min 18 /min eCW1 ([facility]) Deprecated Oxygen saturation in Capillary blood by Oximetry 97 % 97 % eCW1 ([facility]) Body weight Measured 305.0 [lb_av] 305.0 [lb_av ] eCW1 ([facility]) Body height 67 [in_us] 67 [in_us] eCW1 ([facility]) Heart rate 78 /min 78 /min eCW1 ([facility] Body temperature 98.2 [degF] 98.2 [degF] eCW1 ( [facility]) Patient Treatment Plan of Care Planned Activity Planned Date Details Description Data Source (s) Trazodone Hydrochloride 50 MG Oral Tablet 05/26/2019 12:00:00 AM ES T eCW1 ([facility]) Trazodone Hydrochloride 50 MG Oral Tablet 05/26/2019 12:00:00 AM ES T eCW1 ([facility]) Trazodone Hydrochloride 50 MG Oral Tablet 05/26/2019 12:00:00 AM ES T eCW1 ([facility]) Trazodone Hydrochloride 50 MG Oral Tablet 05/26/2019 12:00:00 AM ES T eCW1 ([facility])
[2020-07-11 07:30] VITALS: BP 130/79
--- NOTE | 2020-07-11 08:01 | REP ---
INDICATION: fall on stairs r/o compression fx. Repeat dictation. Preliminary report is provided at the time of the exam by kamla CONLEY. COMPARISON: None. TECHNIQUE: Five views of the lumbar spine are obtained. FINDINGS: There is a subtle dextroconvex curve in the upper lumbar spine on the AP radiograph. An IUD is seen in place in the pelvis. Lumbar vertebral body heights are preserved and alignment is otherwise normal. There are degenerative disc changes at L5-S1 with disc space narrowing and anterior discogenic spurring. There is also minimal narrowing of the L3-4 and L4-5 disc spaces without visible spurring. No fracture or collapse is seen. Psoas margins are symmetric. Sacrum and SI joints are intact. IMPRESSION: Degenerative disc disease changes as noted above. No traumatic abnormality seen. <Electronically signed by Rafael Mata > 07/11/20 [id number]
--- NOTE | 2020-07-11 08:15 | REP ---
INDICATION: fall on stairs left pelvic pain. Repeat dictation. Preliminary report is provided at the time of the exam by kamla CONLEY. COMPARISON: None. TECHNIQUE: AP view of the pelvis. FINDINGS: The bony pelvic ring is intact. Visualized bowel gas pattern is normal. No sacral or hip fracture is seen. There is an IUD in place just to the right of midline in the pelvis. IMPRESSION: Negative AP view of the pelvis. <Electronically signed by Rafael Mata > 07/11/20 [id number]
== END 2020-07-11 07:30 | disposition home or self-care (01) ==
LOC: M ED 05:28
DX: S33.5XXA Sprain of ligaments of lumbar spine, initial encounter (principal); W10.8XXA Fall (on) (from) other stairs and steps, initial encounter; Y92.9 Unspecified place or not applicable; Y93.9 Activity, unspecified; Y99.9 Unspecified external cause status; M25.78 Osteophyte, vertebrae; Z88.1 Allergy status to other antibiotic agents; Z88.6 Allergy status to analgesic agent; Z88.8 Allergy status to other drugs, medicaments and biological substances

== ENCOUNTER 2021-12-10 20:56 | Inpatient (IN) | payer BC, OTHER, SELFPAY ==
[~2021-12-10] VITALS: Ht 170.2 cm; Wt 136.5 kg
[~2021-12-10 20:56] MED LIST: SYNT150T PO; ZOLO100T PO
[2021-12-10] MEDS ORDERED: ISOVUE-370 76% 100ML VIAL As Ordered ONE ×2 (21:32→21:49)
[2021-12-10 21:45] LABS: BASO # 0.1 10^3/uL (0.0-0.2); BASO % 0.4 % (0.0-1.0); EOS # 0.2 10^3/uL (0.0-0.5); EOS % 2.1 % (0.0-3.0); HEMATOCRIT 40.4 % (36.0-47.0); HEMOGLOBIN 13.2 g/dl (12.0-15.5); LYMPH # 2.2 10^3/uL (1.5-5.0); LYMPH % 19.3 % (24.0-44.0); MEAN CORPUSCULAR HEMOGLOBIN 30.5 pg (27.0-33.0); MEAN CORPUSCULAR HGB CONC 32.7 g/dl (32.0-36.5); MEAN CORPUSCULAR VOLUME 93.3 fl (80.0-96.0); MONO # 0.6 10^3/uL (0.0-0.8); MONO % 5.1 % (2.0-8.0); NEUTROPHILS # 8.3 10^3/uL (1.5-8.5); NEUTROPHILS % 72.7 % (36.0-66.0); PLATELET COUNT, AUTOMATED 278 10^3/uL (150-450); RED BLOOD COUNT 4.33 10^6/uL (4.00-5.40); WHITE BLOOD COUNT 11.4 10^3/uL (4.0-10.0)
[2021-12-10 21:56] LABS: INR 0.89; PARTIAL THROMBOPLASTIN TIME 30.3 SECONDS (25.9-37.0); PROTHROMBIN TIME 12.5 SECONDS (12.7-14.5)
[2021-12-10 22:11] LABS: CK-MB VALUE MASS 1.6 NG/ML (<3.6); MB/CK RELATIVE INDEX 1.28 (< OR =4)
[2021-12-10] MEDS ORDERED: TENECTEPLASE 50 MG KIT (TNKase) (J3101 PER 1MG) IVP ONE (22:30)
[2021-12-10] MEDS ORDERED: ONDANSETRON 4MG 2ML VIAL As Ordered ONE (22:47)
[2021-12-10] MEDS ORDERED: KETOROLAC 30 MG/ML 1ML VIAL IV ONE (22:50)
[2021-12-10] MEDS ORDERED: ONDANSETRON 4MG 2ML VIAL IV ONE (22:50)
[2021-12-10] MEDS ORDERED: AMPH1TAB2 PO (23:13)
[2021-12-10] MEDS ORDERED: FEXO-112 PO (23:13)
[2021-12-10] MEDS ORDERED: MOM 30ML SUSPENSION UDC PO PRN (23:40)
[2021-12-10] MEDS ORDERED: ACETAMINOPHEN TAB 650MG DOSE (2X325MG) PO PRN (23:40)
[2021-12-10] MEDS ORDERED: MAALOX 30 ML SUSP *UDC PO PRN (23:40)
[2021-12-11] MEDS ORDERED: HOME MED LIST COMPLETE! XX SCH (00:15)
[2021-12-11 01:40] LABS: RSV AMPLIFICATION NEGATIVE (NEGATIVE)
[2021-12-11] MEDS ORDERED: ASPIRIN 325 MG TAB PO ONE (02:55)
[2021-12-11] MEDS: HEPARIN SOD (PORCINE) 5000UNITS/ML 1ML VIAL/SYRINGE SC SCH ×2 (05:34→14:00)
[2021-12-11] MEDS: ADDERALL 5 MG TAB PO SCH ×2 (05:35→17:58)
[2021-12-11] MEDS ORDERED: SODIUM CHLORIDE 0.9% INJ 10 ML SYR IV ONE ×2 (06:00)
[2021-12-11] MEDS ORDERED: LEVOTHYROXINE 150MCG TABLET (0.15MG) PO SCH (06:00)
[2021-12-11 06:30] LABS: BASO % 0.5 % (0.0-1.0); EOS # 0.2 10^3/uL (0.0-0.5); EOS % 2.2 % (0.0-3.0); HEMATOCRIT 41.2 % (36.0-47.0); HEMOGLOBIN 13.6 g/dl (12.0-15.5); LYMPH # 2.4 10^3/uL (1.5-5.0); LYMPH % 27.2 % (24.0-44.0); MEAN CORPUSCULAR HEMOGLOBIN 30.7 pg (27.0-33.0); MONO # 0.5 10^3/uL (0.0-0.8); MONO % 5.5 % (2.0-8.0); NEUTROPHILS # 5.6 10^3/uL (1.5-8.5); NEUTROPHILS % 64.3 % (36.0-66.0); PLATELET COUNT, AUTOMATED 265 10^3/uL (150-450); RED BLOOD COUNT 4.43 10^6/uL (4.00-5.40); WHITE BLOOD COUNT 8.8 10^3/uL (4.0-10.0)
[2021-12-11 06:48] LABS: HEMOGLOBIN A1c 5.2 %
[2021-12-11 06:59] LABS: ALBUMIN 3.5 GM/DL (3.2-5.2); ALT/SGPT 26 U/L (12-78); BILIRUBIN,TOTAL 0.4 MG/DL (0.2-1.0); BLOOD UREA NITROGEN 13 MG/DL (7-18); CALCIUM LEVEL 9.2 MG/DL (8.5-10.1); CARBON DIOXIDE LEVEL 26 MEQ/L (21-32); CHLORIDE LEVEL 106 MEQ/L (98-107); CHOLESTEROL LEVEL 165 MG/DL (<200); CHOLESTEROL RISK RATIO 3.173 (<5); CREATININE FOR GFR 0.67 MG/DL (0.55-1.30); GLOMERULAR FILTRATION RATE > 60.0 (>60); GLUCOSE, FASTING 91 MG/DL (70-100); HDL CHOLESTEROL 52 MG/DL (>40); LDL CHOLESTEROL 98 MG/DL (<100); MAGNESIUM LEVEL 1.9 MG/DL (1.8-2.4); NON-HDL-C 113 MG/DL; POTASSIUM SERUM 3.8 MEQ/L (3.5-5.1); SODIUM LEVEL 137 MEQ/L (136-145); TOTAL PROTEIN 6.9 GM/DL (6.4-8.2); TRIGLYCERIDES LEVEL 77 MG/DL (<150)
[2021-12-11] MEDS ORDERED: ALLE24TA7 PO (08:21)
[2021-12-11] MEDS ORDERED: SERTRALINE 100 MG TAB PO SCH (09:00)
[2021-12-11 16:56] VITALS: BP 125/64
[2021-12-11] MEDS ORDERED: TOPIRAMATE (TopAMAX) 25 MG TAB PO ONE (18:10)
[2021-12-11] MEDS ORDERED: TOPA50TA8 PO (18:11)
[2021-12-11] MEDS ORDERED: TOPA1TAB PO (18:11)
== END 2021-12-11 19:00 | disposition home or self-care (01) | DRG 54 ==
LOC: M ED 20:56 → M ED INP 23:38 → M 4MAIN 12-11 16:56
PROVIDERS: ADMIT Family Medicine; ATTEND General Practice
DX: G43.109 Migraine with aura, not intractable, without status migrainosus (principal); F32.A Depression, unspecified; E03.9 Hypothyroidism, unspecified; F90.9 Attention-deficit hyperactivity disorder, unspecified type; H53.8 Other visual disturbances; Z79.890 Hormone replacement therapy; Z79.899 Other long term (current) drug therapy; Z88.2 Allergy status to sulfonamides; Z88.1 Allergy status to other antibiotic agents; Z88.6 Allergy status to analgesic agent

== ENCOUNTER 2023-06-10 14:37 | Emergency (ER) | payer OTHER, BC ==
[~2023-06-10] VITALS: Ht 170.2 cm; Wt 123.6 kg
[~2023-06-10 14:37] MED LIST changes: +ALLE24TA7 PO; +AMPH1TAB2 PO; +FEXO-112 PO; +TOPA1TAB PO; +TOPA50TA8 PO
[2023-06-10] MEDS ORDERED: AZEL1SPR3 (15:06)
[2023-06-10] MEDS ORDERED: EPIN0.3I11 (15:06)
[2023-06-10] MEDS ORDERED: BREO1INH (15:06)
[2023-06-10] MEDS ORDERED: CIPR7.5D2 (15:06)
[2023-06-10] MEDS ORDERED: TOPI200T7 (15:06)
[2023-06-10 17:28] VITALS: BP 148/90; TEMP 97.6; O2SAT 99
== END 2023-06-10 17:35 | disposition home or self-care (01) ==
LOC: M ED 14:37
DX: M25.511 Pain in right shoulder (principal); M25.572 Pain in left ankle and joints of left foot; V86.01XA Driver of ambulance or fire engine injured in traffic accident, initial encounter; Y92.9 Unspecified place or not applicable; Y93.9 Activity, unspecified; Y99.9 Unspecified external cause status; M48.00 Spinal stenosis, site unspecified; E03.9 Hypothyroidism, unspecified; F90.9 Attention-deficit hyperactivity disorder, unspecified type; F43.10 Post-traumatic stress disorder, unspecified; Z79.899 Other long term (current) drug therapy; Z88.2 Allergy status to sulfonamides; Z88.1 Allergy status to other antibiotic agents; Z88.6 Allergy status to analgesic agent